=== PATIENT | male | born 1945 | race Caucasian/White ===

== ENCOUNTER 2019-01-11 12:04 | Emergency (ER) | payer MEDICARE, OTHER, SELFPAY ==
[2019-01-11 12:12] VITALS: BP 150/85; PULSE 70; RESP 16; TEMP 36.8; O2SAT 100; BMI 20.6
--- NOTE | 2019-01-11 12:28 | DI.RAD.S_ITS ---
PROCEDURE: XR CHEST 1V INDICATIONS: chest pain TECHNIQUE: One view of the chest was acquired. COMPARISON: [facility], CHEST 1 VIEW, 07/14/2016, 9:48. [facility], CHEST 1 VIEW, 01/18/2017, 19:33. FINDINGS: Surgical changes and devices: None. Lungs and pleura: The anterior costophrenic angles are clipped. No large pneumothorax or large pleural effusions are seen. No focal infiltrates are seen. Mediastinum: Mediastinal contours appear normal. Heart size is normal. Bones and chest wall: No suspicious bony lesions. Age-appropriate bony degenerative changes are seen. Overlying soft tissues appear unremarkable. IMPRESSION: Limited portable chest examination, without a significant cardiopulmonary abnormality identified. Dictated by: Hudson Yin M.D. on 01/11/2019 at 11:56 Approved by: Hudson Yin M.D. on 01/11/2019 at 11:58
[2019-01-11 12:38] LABS: Add Manual Diff / Slide Review NO; Basophils Absolute Auto 100 /uL (0-100); Basophils Percent Auto 0.9 % (0-2); Eosinophils Absolute Auto 100 /uL (0-450); Eosinophils Percent Auto 0.9 % (2-4); Hematocrit 45.8 % (41-53); Lymphocytes Absolute Auto 1600 /uL (1100-4500); Lymphocytes Percent Auto 24.7 % (25-40); Mean Corpuscular HGB Conc 34.9 % (30-36); Mean Corpuscular Hemoglobin 31.5 PG (26-34); Mean Corpuscular Volume 90.4 fL (80-100); Monocytes Absolute Auto 500 /uL (0-900); Monocytes Percent Auto 8.4 % (3-14); Neutrophils Absolute Auto 4200 /uL (1500-7000); Neutrophils Percent Auto 65.1 % (50-75); Platelet Count 173 X10^3/uL (150-400); Red Blood Cell Count 5.07 X10^6/uL (4.5-5.9); Red Cell Distribution Width 13.5 % (11.6-14.8); White Blood Cell Count 6.5 X10^3/uL (4.5-11.0)
[2019-01-11 12:47] LABS: Alanine Aminotransferase 23 IU/L (21-72); Albumin 4.6 g/dL (3.5-5.0); Albumin Globulin Ratio 1.5 (1.0-2.8); Alkaline Phosphatase 88 U/L (38-126); Aspartate Aminotransferase 25 IU/L (17-59); BUN Creatinine Ratio 18.9 (6-22); Bilirubin Total 0.6 mg/dL (0.2-1.3); Blood Urea Nitrogen 17 mg/dL (9-20); Calcium 9.2 mg/dL (8.4-10.2); Carbon Dioxide 27 mmol/L (22-32); Chloride 103 mmol/L (98-107); Creatine Kinase 41 U/L (55-170); Estimated Glomerular Filt Rate > 60.0 mL/min (>60); Glucose 98 mg/dL (80-110); HEMOLYSIS 21 (0-50); Lipase 150 U/L (23-300); Potassium 4.2 mmol/L (3.4-5.1); Sodium 140 mmol/L (137-145); Total Protein 7.6 g/dL (6.3-8.2)
[2019-01-11 12:59] LABS: Troponin I < 0.012 ng/mL (0.01-0.034)
[2019-01-11 13:06] VITALS: BP 114/68; PULSE 56; RESP 11; O2SAT 99
[2019-01-11] MEDS: ASPIRIN 81 MG TAB 324 MG PO (13:17)
--- NOTE | 2019-01-11 13:24 | ED_ITS ---
HPI - Chest Pain General Chief Complaint: Chest Pain Stated Complaint: chest pains, racing heart Time Seen by Provider: 01/11/19 12:17 Source: patient Mode of arrival: ambulatory Limitations: no limitations History of Present Illness HPI narrative: patient is a 73-year-old male who presents with left-sided chest pain ongoing for about a week. he does have a history of COPD.He has got a lot on his plate, He has a history of PTSD and is currently dealing with the son who is an addict. For about the last 1 week he has had some heart palpitations and chest discomfort. no productive cough no fever Related Data Home Medications Medication Instructions Recorded Confirmed citalopram 20 mg PO QPM #0 10/31/17 01/11/19 tamsulosin [Flomax] 0.4 mg PO QPM 01/11/19 01/11/19 Allergies Allergy/AdvReac Type Severity Reaction Status Date / Time No Known Drug Allergies Allergy Verified 01/11/19 12:12 Review of Systems Review of Systems ROS Unobtainable: All systems reviewed & are unremarkable except as noted in HPI and below Constitutional Denies chills, Denies fever(s), Denies lethargy and Denies weakness Eyes Denies change in vision, Denies eye discharge, Denies irritation and Denies loss of vision Cardiovascular Denies dyspnea and Denies dyspnea on exertion Respiratory Denies cough, Denies dyspnea, Denies dyspnea on exertion and Denies wheezing Neurologic Denies loss of vision and Denies weakness Allergic/Immunologic Denies wheezing PFSH Medical History Anxiety (Acute) COPD (chronic obstructive pulmonary disease) (Acute) PTSD (post-traumatic stress disorder) (Acute) Social History 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 RESPIRATORY: Breath sounds equal bilaterally, no wheezes rales or rhonchi. speaks in full sentences without difficulty ABDOMEN: Soft, nontender. Normoactive bowel sounds all 4 quadrants. No guarding or rebound. EXTREMITIES: Normal range of motion, no clubbing or edema. Neurovascularly intact NEUROLOGICAL: Alert and oriented x4.Normal gait and speech. Cranial nerves II through XII grossly intact. SKIN: Warm, dry, no laceration, no petechiae, no rashes or lesions. Scores HEART Score Heart Score history: Slightly Suspicious Heart Score EKG: Normal Heart Score Age: > or = 65 years old Heart Score risk factors: 1-2 risk factors Heart Score troponin: < or = to normal limit Heart Score Total: 3 Course Orders Ordered: ED Orders 01/11/19 12:09 EKG-12 Lead Stat 01/11/19 12:18 Complete Blood Count AUTO DIFF Stat Comprehensive Metabolic Panel Stat Lipase Stat Troponin & CK Cardiac Panel Stat 01/11/19 12:28 XR chest 1V Stat Discontinued Medications Aspirin (Aspirin Chew) 324 mg PO NOW ONE Stop: 01/11/19 12:29 Last Admin: 01/11/19 13:17 Dose: 324 mg Vital Signs - 8 hr 01/11/19 12:12 01/11/19 13:06 01/11/19 13:47 Temperature 98.2 F Pulse Rate 70 56 L 56 L Respiratory Rate 16 11 L 13 Blood Pressure 150/85 H Blood Pressure [Right Arm] 114/68 116/71 Pulse Oximetry 100 99 100 MDM - Chest Pain Lab Data Attestation: I reviewed the patient's lab results. Result diagrams: 01/11/19 12:18 01/11/19 12:18 Lab Results 01/11/19 01/11/19 Range/Units 12:18 12:18 WBC 6.5 (4.5-11.0) X10^3/uL RBC 5.07 (4.5-5.9) X10^6/uL Hgb 16.0 (13.5-17.5) g/dL Hct 45.8 (41-53) % MCV 90.4 (80-100) fL MCH 31.5 (26-34) PG MCHC 34.9 (30-36) % RDW 13.5 (11.6-14.8) % Plt Count 173 (150-400) X10^3/uL Neut % (Auto) 65.1 (50-75) % Lymph % (Auto) 24.7 L (25-40) % Trigg % (Auto) 8.4 (3-14) % Eos % (Auto) 0.9 L (2-4) % Baso % (Auto) 0.9 (0-2) % Neut # (Auto) 4200 (2616-7900) /uL Lymph # (Auto) 1600 (9100-3821) /uL Trigg # (Auto) 500 (0-900) /uL Eos # (Auto) 100 (0-450) /uL Baso # (Auto) 100 (0-100) /uL Sodium 140 (137-145) mmol/L Potassium 4.2 (3.4-5.1) mmol/L Chloride 103 (98-107) mmol/L Carbon Dioxide 27 (22-32) mmol/L BUN 17 (9-20) mg/dL Creatinine 0.90 (0.66-1.25) mg/dL Estimated GFR > 60.0 (>60) mL/min BUN/Creatinine Ratio 18.9 (6-22) Glucose 98 (80-110) mg/dL Calcium 9.2 (8.4-10.2) mg/dL Total Bilirubin 0.6 (0.2-1.3) mg/dL AST 25 (17-59) IU/L ALT 23 (21-72) IU/L Alkaline Phosphatase 88 (38-126) U/L Total Creatine Kinase 41 L (55-170) U/L CK-MB (CK-2) TNP CK-MB (CK-2) Rel Index TNP Troponin I < 0.012 (0.01-0.034) ng/mL Total Protein 7.6 (6.3-8.2) g/dL Albumin 4.6 (3.5-5.0) g/dL Globulin 3.0 (1.7-4.1) g/dL Albumin/Globulin Ratio 1.5 (1.0-2.8) Lipase 150 (23-300) U/L Imaging Data Chest x-ray: Radiologist's impression: PROCEDURE: XR CHEST 1V INDICATIONS: chest pain TECHNIQUE: One view of the chest was acquired. COMPARISON: [facility], CHEST 1 VIEW, 07/14/2016, 9:48. [facility], CHEST 1 VIEW, 01/18/2017, 19:33. FINDINGS: Surgical changes and devices: None. Lungs and pleura: The anterior costophrenic angles are clipped. No large pneumo thorax or large pleural effusions are seen. No focal infiltrates are seen. Mediastinum: Mediastinal contours appear normal. Heart size is normal. Bones and chest wall: No suspicious bony lesions. Age-appropriate bony degenerative changes are seen. Overlying soft tissues appear unremarkable. IMPRESSION: Limited portable chest examination, without a significant cardiopulmonary abnormality identified. Dictated by: Hudson Yin M.D. on 01/11/2019 at 11:56 MDM Narrative Medical decision making narrative: the patient states that is true reason for coming into the emergency department morning with his heart palpitations. He feels like some of it was anxiety. Cardiac workup is negative here. We discussed taking aspirin 81 mg daily to help with heart attack and stroke prevention. He understands and agrees also recommended outpatient stress test. Discharge Plan Departure Patient Disposition: Home Clinical Impression: Atypical chest pain Discharge Date/Time: 01/11/19 13:52 Interventions: ED Discharge Assessment Last Done: 01/11/19 13:52 Instructions: DI for Atypical Chest Pain Activity Restrictions/Additional Instructions: *You have been diagnosed with atypical chest *What to do: I still do recommend outpatient stress test chemically induced which your primary care provider can help you set. *Continue to take medications as directed Aspirin 81 mg once a day to help prevent stroke and heart attack *Follow up with your primary care provider in 2-3 days *Return to ER if you should have increasing chest pain heart medication shortness of breath or any new, worsening or concerning symptoms Prescriptions: No Action citalopram 20 MG tablet 20 mg PO QPM Qty: 0 RF: 0 tamsulosin [Flomax] 0.4 MG capsule 0.4 mg PO QPM RF: 0 Referrals: Calvin Hollins MD [Primary Care Provider] -
[2019-01-11 13:47] VITALS: BP 116/71; PULSE 56; RESP 13; O2SAT 100
== END 2019-01-11 13:52 | disposition home or self-care (01) ==
PROVIDERS: Emergency Provider Emergency Medicine; PCP Family Medicine
DX: R07.89 Other chest pain (principal)
CPT/HCPCS: 36591; 71045; 80053; 82550; 83690; 84484; 85025; 93005; 93010; 99283; 99285

== ENCOUNTER → 2019-01-15 09:53 | Outpatient (CLI) | payer MEDICARE, OTHER, SELFPAY ==
[2019-01-15 10:35] LABS: Add Manual Diff / Slide Review NO; Basophils Absolute Auto 0 /uL (0-100); Basophils Percent Auto 0.5 % (0-2); Eosinophils Absolute Auto 100 /uL (0-450); Eosinophils Percent Auto 1.2 % (2-4); Hematocrit 45.9 % (41-53); Hemoglobin 15.8 g/dL (13.5-17.5); Lymphocytes Absolute Auto 1400 /uL (1100-4500); Lymphocytes Percent Auto 22.1 % (25-40); Mean Corpuscular HGB Conc 34.4 % (30-36); Mean Corpuscular Hemoglobin 31.2 PG (26-34); Mean Corpuscular Volume 90.9 fL (80-100); Monocytes Absolute Auto 400 /uL (0-900); Monocytes Percent Auto 6.4 % (3-14); Neutrophils Absolute Auto 4400 /uL (1500-7000); Neutrophils Percent Auto 69.8 % (50-75); Platelet Count 174 X10^3/uL (150-400); Red Blood Cell Count 5.05 X10^6/uL (4.5-5.9); Red Cell Distribution Width 13.3 % (11.6-14.8); White Blood Cell Count 6.3 X10^3/uL (4.5-11.0)
[2019-01-15 10:47] LABS: Alanine Aminotransferase 21 IU/L (21-72); Albumin 4.4 g/dL (3.5-5.0); Albumin Globulin Ratio 1.5 (1.0-2.8); Alkaline Phosphatase 81 U/L (38-126); Aspartate Aminotransferase 20 IU/L (17-59); Bilirubin Total 0.4 mg/dL (0.2-1.3); Blood Urea Nitrogen 22 mg/dL (9-20); Calcium 9.2 mg/dL (8.4-10.2); Carbon Dioxide 28 mmol/L (22-32); Chloride 102 mmol/L (98-107); Cholesterol 281 mg/dL (140-199); Estimated Glomerular Filt Rate > 60.0 mL/min (>60); Glucose 116 mg/dL (80-110); HDL Cholesterol 43 mg/dL (40-60); HEMOLYSIS < 15 (0-50); LDL Cholesterol Calculated 212 mg/dL (<100); Potassium 4.5 mmol/L (3.4-5.1); Sodium 138 mmol/L (137-145); Total Protein 7.4 g/dL (6.3-8.2); Triglycerides 128 mg/dL (35-150)
[2019-01-15 11:13] LABS: TSH w/ Reflex to FT4 2.13 uIU/mL (0.47-4.68)
[2019-01-15 19:35] LABS: Occult Blood 1 Negative (Negative); Occult Blood 2 Negative (Negative)
[2019-01-15 19:36] LABS: Occult Blood 3 Negative (Negative)
== END ==
PROVIDERS: PCP Family Medicine; Visit Provider Family Medicine
DX: E78.00 Pure hypercholesterolemia, unspecified (principal)
CPT/HCPCS: 36415; 80053; 80061; 82270; 84443; 85025

== ENCOUNTER → 2019-05-07 08:24 | Outpatient (CLI) | payer MEDICARE, OTHER, SELFPAY ==
[2019-05-07 09:50] LABS: Add Manual Diff / Slide Review NO; Basophils Absolute Auto 0 /uL (0-100); Basophils Percent Auto 0.7 % (0-2); Eosinophils Absolute Auto 100 /uL (0-450); Eosinophils Percent Auto 2.3 % (2-4); Hemoglobin 15.3 g/dL (13.5-17.5); Lymphocytes Absolute Auto 1400 /uL (1100-4500); Lymphocytes Percent Auto 22.8 % (25-40); Mean Corpuscular HGB Conc 34.8 % (30-36); Mean Corpuscular Hemoglobin 31.6 PG (26-34); Mean Corpuscular Volume 90.8 fL (80-100); Monocytes Absolute Auto 400 /uL (0-900); Monocytes Percent Auto 7.4 % (3-14); Neutrophils Absolute Auto 4000 /uL (1500-7000); Neutrophils Percent Auto 66.8 % (50-75); Platelet Count 158 X10^3/uL (150-400); Red Blood Cell Count 4.85 X10^6/uL (4.5-5.9); Red Cell Distribution Width 13.4 % (11.6-14.8); White Blood Cell Count 5.9 X10^3/uL (4.5-11.0)
[2019-05-07 09:57] LABS: Alanine Aminotransferase 21 IU/L (21-72); Albumin 3.9 g/dL (3.5-5.0); Albumin Globulin Ratio 1.5 (1.0-2.8); Alkaline Phosphatase 85 U/L (38-126); Aspartate Aminotransferase 19 IU/L (17-59); BUN Creatinine Ratio 21.1 (6-22); Bilirubin Total 0.5 mg/dL (0.2-1.3); Blood Urea Nitrogen 19 mg/dL (9-20); Calcium 8.9 mg/dL (8.4-10.2); Carbon Dioxide 31 mmol/L (22-32); Chloride 103 mmol/L (98-107); Cholesterol 271 mg/dL (140-199); Estimated Glomerular Filt Rate > 60.0 mL/min (>60); Globulin 2.6 g/dL (1.7-4.1); Glucose 92 mg/dL (80-110); HDL Cholesterol 46 mg/dL (40-60); HEMOLYSIS < 15 (0-50); LDL Cholesterol Calculated 201 mg/dL (<100); Potassium 4.5 mmol/L (3.4-5.1); Sodium 139 mmol/L (137-145); Total Protein 6.5 g/dL (6.3-8.2); Triglycerides 121 mg/dL (35-150)
== END ==
PROVIDERS: PCP Hospitalist; Visit Provider Hospitalist
DX: J44.9 Chronic obstructive pulmonary disease, unspecified (principal)
CPT/HCPCS: 36415; 80053; 80061; 85025

== ENCOUNTER → 2019-10-08 10:44 | Outpatient (CLI) | payer MEDICARE, OTHER, SELFPAY | PROVIDERS: PCP Hospitalist; Visit Provider Hospitalist | DX: M54.5 Low back pain (principal) ==

== ENCOUNTER → 2019-10-08 10:51 | Outpatient (CLI) | payer MEDICARE, OTHER, SELFPAY ==
--- NOTE | 2019-10-08 | DI.RAD.S_ITS ---
PROCEDURE: XR LUMBAR SPINE 2-3V INDICATIONS: low back pain TECHNIQUE: 3 views of the lumbar spine were acquired. COMPARISON: [facility], CR, ABDOMEN 2 VIEW, 06/13/2017, 7:21. [facility], CT, CT KUB, 10/31/2017, 7:23. FINDINGS: Bones: 5 [id number] vertebrae are present. There is moderately abnormal bony alignment with convex rightward scoliosis centered at L2, slightly more prominent than on the comparison plain films of the abdomen 06/13/17. No vertebral body compression fractures. No suspicious bony lesions. Soft tissues: Overlying bowel gas pattern is normal. No suspicious soft tissue calcifications. IMPRESSION: Convex rightward scoliosis measures 14.5?, mildly worsened from 2017. No acute disease, however. Dictated by: Davey Ortega M.D. on 10/08/2019 at 11:20 Approved by: Davey Ortega M.D. on 10/08/2019 at 11:22
== END ==
PROVIDERS: PCP Hospitalist; Visit Provider Hospitalist
DX: M54.5 Low back pain (principal); M41.86 Other forms of scoliosis, lumbar region
CPT/HCPCS: 72100

== ENCOUNTER → 2019-10-23 08:27 | Outpatient (CLI) | payer MEDICARE, OTHER, SELFPAY ==
[2019-10-23 09:29] LABS: Add Manual Diff / Slide Review NO; Basophils Absolute Auto 0 /uL (0-100); Basophils Percent Auto 0.5 % (0-2); Eosinophils Absolute Auto 100 /uL (0-450); Eosinophils Percent Auto 1.4 % (2-4); Hematocrit 43.9 % (41-53); Hemoglobin 15.6 g/dL (13.5-17.5); Lymphocytes Absolute Auto 1400 /uL (1100-4500); Lymphocytes Percent Auto 20.7 % (25-40); Mean Corpuscular HGB Conc 35.5 % (30-36); Mean Corpuscular Hemoglobin 31.9 PG (26-34); Mean Corpuscular Volume 89.8 fL (80-100); Monocytes Absolute Auto 500 /uL (0-900); Monocytes Percent Auto 7.2 % (3-14); Neutrophils Absolute Auto 4800 /uL (1500-7000); Neutrophils Percent Auto 70.2 % (50-75); Platelet Count 156 X10^3/uL (150-400); Red Blood Cell Count 4.89 X10^6/uL (4.5-5.9); Red Cell Distribution Width 13.6 % (11.6-14.8); White Blood Cell Count 6.8 X10^3/uL (4.5-11.0)
[2019-10-23 10:06] LABS: Cholesterol 272 mg/dL (140-199); HDL Cholesterol 45 mg/dL (40-60); LDL Cholesterol Calculated 199 mg/dL (<100); Triglycerides 138 mg/dL (35-150)
[2019-10-23 10:20] LABS: Vitamin D 25 Hydroxy (D3) 31.1 ng/mL (30.0-100.0)
[2019-10-23 10:36] LABS: Prostate Specific Antigen 4.95 ng/mL (0.10-4.00)
== END ==
PROVIDERS: PCP Family Medicine; Visit Provider Family Medicine
DX: E55.9 Vitamin D deficiency, unspecified (principal); E78.5 Hyperlipidemia, unspecified; R39.9 Unspecified symptoms and signs involving the genitourinary system
CPT/HCPCS: 36415; 80061; 82306; 84153; 85025

== ENCOUNTER 2019-11-12 07:41 | Outpatient (RCR) | payer MEDICARE, OTHER, SELFPAY ==
--- NOTE | 2019-11-12 16:12 | PT.OIE ---
Current Diagnoses Low back pain (11/12/19) Past Medical History (Last Updated 10/16/19 @ 16:27 by Antonio Chandra DO) Anxiety (Chronic) Chicken pox (Resolved) Chronic back pain (Chronic ~1972) COPD (chronic obstructive pulmonary disease) (Chronic ~1999) Gastric ulcer (Chronic ~1979) Hearing loss (Chronic ~1971) Herpes (Resolved ~1969) History of elevated PSA (Chronic ~2009) Hyperlipidemia (Acute) PTSD (post-traumatic stress disorder) (Chronic ~1967) Tinnitus (Chronic ~1971) Tobacco abuse (Acute) Past Surgical History (Last Reviewed 09/06/19 @ 12:15 by Layla Martinez MD) Anesthesia (Resolved) Hernia (Resolved) History of appendectomy (Resolved ~2007) Visit Care Team Role Provider Type Antonio Chandra DO Attending Provider Physician Primary Care Provider Specialty: [facility] Address: [address] [place] [address] Email: Physical Therapy Initial Evaluation PT-OP-A Visit Information Start: 11/12/19 08:06 Freq: Status: Active Protocol: Document 11/12/19 08:15 AMB (Rec: 11/12/19 16:29 AMB [email or web address]) Out-Patient Physical Therapy Visit Information Visit Information Visit Type Initial Evaluation Visit Start Time 08:15 Visit Stop Time 09:00 Total Visit Minutes 45 Visit Number 1 PT-OP-B Current Condition Start: 11/12/19 08:06 Freq: Status: Active Protocol: Document 11/12/19 08:15 AMB (Rec: 11/12/19 16:29 AMB [email or web address]) Current Condition History of Current Condition Onset Date 40 years ago (chronic) 1 month ago (acute exacerbation) Current Complaints low back pain History of Current Condition Oscar reports he was on the top of a 2 story building 40 years ago when it collapsed. He states he landed on the low back/buttocks more on the right side and had X-rays at the time that did not show any fractures. He had pain for days, but then went back to work but has had chronic low back pain since. He notes that a month ago, he was jerking a garbage can that was frozen to the ground and felt his back go out. The pain was pretty bad for about 2 weeks, but is better now. A few days ago, he felt like he was lifting something and is worried that his hernia surgery split. He has had two hernia surgeries on the right . He has lost about 30 pounds from before and after his most recent hernia surgery because it was uncomfortable to digest food. He is also recently went on a [place] diet due to high cholesterol. He is concerned that he has lost muscle mass due to his fairly significant weight loss. He currently finds walking more than a mile or two difficult due to the pain, and has increased pain immediately upon trying to walk up hill. He dislikes bending forward to wash dishes , or to push the lawnmower. Prior Functional Status Baseline Function- ADL's Independent Baseline Function- Mobility Independent Current Functional Impairments (Reported) Functional Limitations- ADL's Pain with lumbar flexion activities including dishwashing, walking uphill, mowing the lawn Functional Limitations- Mobility/Gait Antalgic gait even for short distances Personal Factors Other Personal Factors That May Effect Current smoker, hx hernia Therapy/Recovery surgery x 2 PT-OP-C Subjective Start: 11/12/19 08:06 Freq: Status: Active Protocol: Document 11/12/19 08:15 AMB (Rec: 11/12/19 16:29 AMB [email or web address]) Patient Questionnaires Oswestry Low Back Index Oswestry Score 42 Oswestry Impairment 40 to 59% Impaired (Score 40- 59) OP-PT Pain Assessment Location Back Pain Location Details Low back pain Intensity 3 Scale Used Numeric (1 - 10) PT-OP-J Posture/Palpation/Skin Start: 11/12/19 08:06 Freq: Status: Active Protocol: Document 11/12/19 08:15 AMB (Rec: 11/13/19 12:55 AMB [email or web address]) Posture Evaluation Comments Posture Comments R medial scapula more prominent, mild curvature convex to the right in the thoracic spine Palpation Assessment Location One Palpation Location low back Palpation Details no tenderness with palpation over sacrum, tenderness with palpation and stiffness with central PAs at L3-5. Very flexible through hamstrings and hip flexors. PT-OP-K Range of Motion Start: 11/12/19 08:06 Freq: Status: Active Protocol: Document 11/12/19 08:15 AMB (Rec: 11/13/19 12:55 AMB [email or web address]) Lumbar Spine Range of Motion Lumbar Spine Active Degrees Testing Position Standing Flexion 40 Extension 25 Lateral Flexion Left 25 Lateral Flexion Right 25 Comments pain with flexion and sidebending PT-OP-M Strength Start: 11/12/19 08:06 Freq: Status: Active Protocol: Document 11/12/19 08:15 AMB (Rec: 11/13/19 12:55 AMB [email or web address]) Hip Strength Hip Manual Muscle Testing Right Flexion (L2) 4+ Good+ Extension (S1) 4+ Good+ Abduction 5 Normal Adduction 5 Normal Comments palpating R side where pt describes hernia throughout testing, no bulging out felt Left Flexion (L2) 4+ Good+ Extension (S1) 4+ Good+ Abduction 5 Normal Adduction 5 Normal Knee Strength Knee Manual Muscle Testing Right Flexion (S2) 5 Normal Extension (L3) 5 Normal Left Flexion (S2) 5 Normal Extension (L3) 5 Normal Ankle/Foot Strength Ankle and Foot Manual Muscle Testing Right Dorsiflexion (L4) 5 Normal Plantarflexion (S1) 5 Normal Left Dorsiflexion (L4) 5 Normal Plantarflexion (S1) 5 Normal PT-OP-Q Treatments Start: 11/12/19 08:06 Freq: Status: Active Protocol: Document 11/12/19 08:15 AMB (Rec: 11/13/19 12:55 AMB [email or web address]) Therapeutic Exercises Other Exercises 1 Other Exercise Name quadruped UE flexion Comments working into bird dog, vc TA PT-OP-T Assessment and Plan Start: 11/12/19 08:06 Freq: Status: Active Protocol: Document 11/12/19 08:15 AMB (Rec: 11/13/19 13:04 AMB [email or web address]) Physical Therapy Assessment Rehab Potential Rehabilitation Potential Good Evaluation Complexity Number of Body Systems Impaired 1-2 Clinical Presentation at Evaluation Evolving Impairments Impairments Functional Activities,Gait, Pain,Posture,ROM,Strength Goals Two Impairment ADLs Short Term Goal (STG) Oscar will wash his dishes without an increase in baseline pain. STG Duration 4 weeks Fdc Goal (LTG) Oscar will lift 20# from the floor to waist height with good body mechanics without an increase in pain. LTG Duration 8 weeks One Impairment gait Short Term Goal (STG) Pt will ambulate without antalgic gait for 10 minutes. STG Duration 4 weeks Assessment Summary Assessment Oscar attends physical therapy with an acute exacerbation of chronic back pain. The exacerbation is better than it was 2 weeks ago, but he is hopeful to work on an exercise program that he can do at home, as he has not been exercising since his pain flare up. However, he is concerned about his recent increase in pain around his hernia that was repaired. He is planning on following up with his physician regarding his hernia before continuing with physical therapy, and was encouraged to do this sooner rather than later so he does not need a new referral to PT. He was able to tolerate all testing in PT today without a flare up in his pain around his hernia, but he would like to get it checked out. When he returns to physical therapy he would benefit from a core stabilization program. Physical Therapy Plan Frequency and Duration Frequency of Treatment 2x/Week Duration of Treatment 8 weeks Plan of Care Start Date 11/12/19 Plan of Care End Date 01/07/20 Therapeutic Interventions Therapeutic Interventions Aquatic Therapy,Gait Training, Home Exercise Program,Joint Mobilizations,Manual Therapy, Neuromuscular Re-education, Self-Care/Home Management, Therapeutic Activities, Therapeutic Exercises Modalities Cold Pack/Ice Massage,Electric Stimulation,Hot Packs Next Visit Focus/Plan Next Note Type Treatment Note Next Visit Plan Progress core stabilization HEP
--- NOTE | 2019-11-12 16:13 | PT.OPPOC ---
[facility] Occupational [facility] Current Diagnoses Low back pain (11/12/19) Visit Care Team Role Provider Type Antonio Chandra DO Attending Provider Physician Primary Care Provider Specialty: Family [facility] Address: [address] [place] [address], [id number] Email: Plan Of Care PT-OP-T Assessment and Plan Start: 11/12/19 08:06 Freq: Status: Active Protocol: Document 11/12/19 08:15 AMB (Rec: 11/13/19 13:04 AMB [email or web address]) Physical Therapy Assessment Rehab Potential Rehabilitation Potential Good Evaluation Complexity Number of Body Systems Impaired 1-2 Clinical Presentation at Evaluation Evolving Impairments Impairments Functional Activities,Gait, Pain,Posture,ROM,Strength Goals Two Impairment ADLs Short Term Goal (STG) Oscar will wash his dishes without an increase in baseline pain. STG Duration 4 weeks Law Secretary Goal (LTG) Oscar will lift 20# from the floor to waist height with good body mechanics without an increase in pain. LTG Duration 8 weeks One Impairment gait Short Term Goal (STG) Pt will ambulate without antalgic gait for 10 minutes. STG Duration 4 weeks Assessment Summary Assessment Oscar attends physical therapy with an acute exacerbation of chronic back pain. The exacerbation is better than it was 2 weeks ago, but he is hopeful to work on an exercise program that he can do at home, as he has not been exercising since his pain flare up. However, he is concerned about his recent increase in pain around his hernia that was repaired. He is planning on following up with his physician regarding his hernia before continuing with physical therapy, and was encouraged to do this sooner rather than later so he does not need a new referral to PT. He was able to tolerate all testing in PT today without a flare up in his pain around his hernia, but he would like to get it checked out. When he returns to physical therapy he would benefit from a core stabilization program. Physical Therapy Plan Frequency and Duration Frequency of Treatment 2x/Week Duration of Treatment 8 weeks Plan of Care Start Date 11/12/19 Plan of Care End Date 01/07/20 Therapeutic Interventions Therapeutic Interventions Aquatic Therapy,Gait Training, Home Exercise Program,Joint Mobilizations,Manual Therapy, Neuromuscular Re-education, Self-Care/Home Management, Therapeutic Activities, Therapeutic Exercises Modalities Cold Pack/Ice Massage,Electric Stimulation,Hot Packs Next Visit Focus/Plan Next Note Type Treatment Note Next Visit Plan Progress core stabilization HEP Plan of Care Dates Plan of Care Start Date 11/12/19 Plan of Care End Date 01/07/20 Electronically Signed by: Bonnie Tadeo, PT 11/13/19 [id number] Please Sign and Return: I have reviewed this Plan of Care and certify that the skilled therapy services above are required to meet the patient?s needs. Physician Signature Date Printed Name and Credentials Clinical Instructor Signature Printed Name and Credentials
--- NOTE | 2020-01-17 08:46 | PT.OPDS ---
Current Diagnoses Low back pain (11/12/19) Visit Care Team Role Provider Type Antonio Chandra DO Attending Provider Physician Primary Care Provider Specialty: Family Practice Address: [address] [place] [address], [facility] Email: Visit Number Visit Number 1 Discharge Summary PT-OP-B Current Condition Start: 11/12/19 08:06 Freq: Status: Active Protocol: Document 11/12/19 08:15 AMB (Rec: 11/12/19 16:29 AMB [email or web address]) Current Condition History of Current Condition Onset Date 40 years ago (chronic) 1 month ago (acute exacerbation) Current Complaints low back pain History of Current Condition Oscar reports he was on the top of a 2 story building 40 years ago when it collapsed. He states he landed on the low back/buttocks more on the right side and had X-rays at the time that did not show any fractures. He had pain for days, but then went back to work but has had chronic low back pain since. He notes that a month ago, he was jerking a garbage can that was frozen to the ground and felt his back go out. The pain was pretty bad for about 2 weeks, but is better now. A few days ago, he felt like he was lifting something and is worried that his hernia surgery split. He has had two hernia surgeries on the right . He has lost about 30 pounds from before and after his most recent hernia surgery because it was uncomfortable to digest food. He is also recently went on a [place] diet due to high cholesterol. He is concerned that he has lost muscle mass due to his fairly significant weight loss. He currently finds walking more than a mile or two difficult due to the pain, and has increased pain immediately upon trying to walk up hill. He dislikes bending forward to wash dishes , or to push the lawnmower. Prior Functional Status Baseline Function- ADL's Independent Baseline Function- Mobility Independent Current Functional Impairments (Reported) Functional Limitations- ADL's Pain with lumbar flexion activities including dishwashing, walking uphill, mowing the lawn Functional Limitations- Mobility/Gait Antalgic gait even for short distances Personal Factors Other Personal Factors That May Effect Current smoker, hx hernia Therapy/Recovery surgery x 2 PT-OP-C Subjective Start: 11/12/19 08:06 Freq: Status: Active Protocol: Document 11/12/19 08:15 AMB (Rec: 11/12/19 16:29 AMB [email or web address]) Patient Questionnaires Oswestry Low Back Index Oswestry Score 42 Oswestry Impairment 40 to 59% Impaired (Score 40- 59) OP-PT Pain Assessment Location Back Pain Location Details Low back pain Intensity 3 Scale Used Numeric (1 - 10) PT-OP-J Posture/Palpation/Skin Start: 11/12/19 08:06 Freq: Status: Active Protocol: Document 11/12/19 08:15 AMB (Rec: 11/13/19 12:55 AMB [email or web address]) Posture Evaluation Comments Posture Comments R medial scapula more prominent, mild curvature convex to the right in the thoracic spine Palpation Assessment Location One Palpation Location low back Palpation Details no tenderness with palpation over sacrum, tenderness with palpation and stiffness with central PAs at L3-5. Very flexible through hamstrings and hip flexors. PT-OP-K Range of Motion Start: 11/12/19 08:06 Freq: Status: Active Protocol: Document 11/12/19 08:15 AMB (Rec: 11/13/19 12:55 AMB [email or web address]) Lumbar Spine Range of Motion Lumbar Spine Active Degrees Testing Position Standing Flexion 40 Extension 25 Lateral Flexion Left 25 Lateral Flexion Right 25 Comments pain with flexion and sidebending PT-OP-M Strength Start: 11/12/19 08:06 Freq: Status: Active Protocol: Document 11/12/19 08:15 AMB (Rec: 11/13/19 12:55 AMB [email or web address]) Hip Strength Hip Manual Muscle Testing Right Flexion (L2) 4+ Good+ Extension (S1) 4+ Good+ Abduction 5 Normal Adduction 5 Normal Comments palpating R side where pt describes hernia throughout testing, no bulging out felt Left Flexion (L2) 4+ Good+ Extension (S1) 4+ Good+ Abduction 5 Normal Adduction 5 Normal Knee Strength Knee Manual Muscle Testing Right Flexion (S2) 5 Normal Extension (L3) 5 Normal Left Flexion (S2) 5 Normal Extension (L3) 5 Normal Ankle/Foot Strength Ankle and Foot Manual Muscle Testing Right Dorsiflexion (L4) 5 Normal Plantarflexion (S1) 5 Normal Left Dorsiflexion (L4) 5 Normal Plantarflexion (S1) 5 Normal PT-OP-T Assessment and Plan Start: 11/12/19 08:06 Freq: Status: Active Protocol: Document 01/17/20 08:45 AMB (Rec: 01/17/20 08:46 AMB [id number]) Physical Therapy Assessment Assessment Summary Assessment Oscar was not seen after his eval due to being concerned about his hernia. Please see initial evaluation for data. He has not been seen in over 2 months, therefore discharged at this time.
== END 2020-01-18 08:22 ==
LOC: PHYS 07:41
PROVIDERS: PCP Family Medicine; Visit Provider Family Medicine
DX: M54.5 Low back pain (principal)
CPT/HCPCS: 97110; 97161

== ENCOUNTER 2020-12-20 06:47 | Emergency (ER) | payer MEDICARE, SELFPAY ==
[2020-12-20 06:57] VITALS: BP 191/86; PULSE 77; RESP 18; TEMP 36.7; O2SAT 99; BMI 21.2
[2020-12-20 07:29] LABS: Add Manual Diff / Slide Review NO; Basophils Absolute Auto 100 /uL (0-100); Basophils Percent Auto 0.8 % (0-2); Eosinophils Absolute Auto 100 /uL (0-450); Eosinophils Percent Auto 1.2 % (2-4); Hematocrit 47.9 % (41-53); Hemoglobin 16.5 g/dL (13.5-17.5); Lymphocytes Absolute Auto 1400 /uL (1100-4500); Lymphocytes Percent Auto 22.5 % (25-40); Mean Corpuscular HGB Conc 34.3 % (30-36); Mean Corpuscular Hemoglobin 30.4 PG (26-34); Mean Corpuscular Volume 88.7 fL (80-100); Monocytes Absolute Auto 400 /uL (0-900); Monocytes Percent Auto 6.8 % (3-14); Neutrophils Absolute Auto 4200 /uL (1500-7000); Neutrophils Percent Auto 68.7 % (50-75); Platelet Count 161 X10^3/uL (150-400); White Blood Cell Count 6.1 X10^3/uL (4.5-11.0)
[2020-12-20 07:35] LABS: Prothrombin Time 11.8 SECONDS (10.1-12.7)
[2020-12-20 07:38] LABS: PTT Partial Thromboplastin Tim 36 SECONDS (26.4-36.2)
[2020-12-20 07:39] LABS: Alanine Aminotransferase 17 IU/L (<50); Albumin 4.3 g/dL (3.5-5.0); Albumin Globulin Ratio 1.4 (1.0-2.8); Alkaline Phosphatase 103 U/L (38-126); Aspartate Aminotransferase 23 IU/L (17-59); BUN Creatinine Ratio 17.8 (6-22); Bilirubin Total 0.6 mg/dL (0.2-1.3); Blood Urea Nitrogen 16 mg/dL (9-20); Calcium 8.8 mg/dL (8.4-10.2); Carbon Dioxide 32 mmol/L (22-32); Chloride 102 mmol/L (98-107); Estimated Glomerular Filt Rate > 60.0 mL/min (>60); Globulin 3.1 g/dL (1.7-4.1); Glucose 106 mg/dL (80-110); HEMOLYSIS < 15 (0-50); Lipase 161 U/L (23-300); Sodium 138 mmol/L (137-145); Total Protein 7.4 g/dL (6.3-8.2)
--- NOTE | 2020-12-20 07:43 | ED_ITS ---
HPI - GI Bleed General Chief complaint: GI Bleed Stated complaint: poss ulser Time Seen by Provider: 12/20/20 07:21 Source: patient Mode of arrival: Ambulatory Limitations: no limitations History of Present Illness HPI Narrative: Patient is a 75-year-old male who has 2 prior episodes of upper GI bleeds. The 1st 1 is approximately 30 years ago and the 2nd 1 was approximately 20 years ago. He is not currently on any reflux medications/PPI peer he does not drink alcohol. Does not use anti-inflammatories. Does not take aspirin. Is not on anticoagulation. He states that earlier this week he started noticing some black colored stools but then over the past 2 days noticed black diarrhea. He is not having any fevers. No nausea or vomiting. No abdominal pain. No bright red blood per rectum. No problems with urinating. Related Data Previous Rx's Medication Instructions Recorded tamsulosin 0.4 mg capsule 0.4 mg PO QPM #90 cap 09/03/20 esomeprazole magnesium 20 mg PO DAILY #30 cap 12/20/20 Allergies Allergy/AdvReac Type Severity Reaction Status Date / Time No Known Drug Allergies Allergy Verified 12/17/19 10:11 Review of Systems Constitutional Constitutional: Denies fever(s) and Denies headache(s) ENT Ears, Nose, Mouth, and Throat: Denies headache(s) Cardiovascular Cardiovascular: Denies chest pain and Denies dyspnea Respiratory Respiratory: Denies dyspnea Gastrointestinal Gastrointestinal: Denies abdominal pain, Reports melena, Denies hematochezia, Denies nausea and Denies vomiting Genitourinary Genitourinary: Denies dysuria Genitourinary: Denies dysuria Musculoskeletal Musculoskeletal: Denies arthralgias and Denies myalgias Integumentary/Breasts Skin/Breast: Denies lesions and Denies rash Neurologic Neurologic: Denies behavioral changes and Denies headache(s) Psychiatric Psychiatric: Denies behavioral changes Hematologic/Lymphatic On Anticoagulants: No Allergic/Immunologic Allergic/Immunologic: Denies urticaria Patient History Medical History Anxiety Chicken pox Chronic back pain (~1972) COPD (chronic obstructive pulmonary disease) (~1999) Gastric ulcer (~1979) Hearing loss (~1971) Herpes (~1969) History of elevated PSA (~2009) Hyperlipidemia PTSD (post-traumatic stress disorder) (~1967) Tinnitus (~1971) Tobacco abuse Surgical History Anesthesia Hernia History of appendectomy (~2007) Family History Father Pneumonia Mother Pneumonia Social History 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 Smoking Status: Current every day smoker quit status: considering quitting alcohol intake: former substance use type: marijuana Smoking Status: Current every day smoker tobacco type: cigarettes Substance Use Type: does not use Exam Initial Vital Signs Initial Vital Signs: Vital Signs Temperature 98.1 F 12/20/20 06:57 Pulse Rate 77 12/20/20 06:57 Respiratory Rate 18 12/20/20 06:57 Blood Pressure 191/86 H 12/20/20 06:57 Pulse Oximetry 99 12/20/20 06:57 Const General: cooperative and comfortable Limitations: mental status not altered HENMT Head: normal to inspection and normocephalic Resp Effort & Inspection: normal respiratory effort Auscultation: clear to auscultation bilaterally Cardio Rate: regular rate Rhythm: regular rhythm GI Inspection: non-distended Palpation: soft, No firm and No tender Rectal Exam: heme negative stool (However no stool noted in rectal vault or on glove) Skin Lesions: no lesions Rashes: no rashes Neuro General: patient alert and patient awake Cognition: normal cognition Speech: speech normal Extrem General: capillary refill normal Psych Appearance: grossly normal and well kempt Course Orders Ordered: ED Orders 12/20/20 07:21 Complete Blood Count AUTO DIFF Stat Comprehensive Metabolic Panel Stat 12/20/20 07:22 Lipase Stat Partial Thromboplastin Time Stat Prothrombin Time INR Stat Vital Signs Vital signs: Vital Signs - 8 hr 12/20/20 06:57 Temperature 98.1 F Pulse Rate 77 Respiratory Rate 18 Blood Pressure 191/86 H Pulse Oximetry 99 MDM - GI Bleed Lab Data Attestation: I reviewed the patient's lab results. Result diagrams: 12/20/20 07:12 12/20/20 07:12 Labs: Lab Results 12/20/20 12/20/20 12/20/20 Range/Units 07:12 07:12 07:12 WBC 6.1 (4.5-11.0) X10^3/uL RBC 5.40 (4.5-5.9) X10^6/uL Hgb 16.5 (13.5-17.5) g/dL Hct 47.9 (41-53) % MCV 88.7 (80-100) fL MCH 30.4 (26-34) PG MCHC 34.3 (30-36) % RDW 14.0 (11.6-14.8) % Plt Count 161 (150-400) X10^3/uL Neut % (Auto) 68.7 (50-75) % Lymph % (Auto) 22.5 L (25-40) % Roane % (Auto) 6.8 (3-14) % Eos % (Auto) 1.2 L (2-4) % Baso % (Auto) 0.8 (0-2) % Neut # (Auto) 4200 (9876-8116) /uL Lymph # (Auto) 1400 (0174-0476) /uL Roane # (Auto) 400 (0-900) /uL Eos # (Auto) 100 (0-450) /uL Baso # (Auto) 100 (0-100) /uL PT 11.8 (10.1-12.7) SECONDS INR 1.0 (0.9-1.3) APTT 36 (26.4-36.2) SECONDS Sodium 138 (137-145) mmol/L Potassium 4.0 (3.4-5.1) mmol/L Chloride 102 (98-107) mmol/L Carbon Dioxide 32 (22-32) mmol/L BUN 16 (9-20) mg/dL Creatinine 0.90 (0.66-1.25) mg/dL Estimated GFR > 60.0 (>60) mL/min BUN/Creatinine Ratio 17.8 (6-22) Glucose 106 (80-110) mg/dL Calcium 8.8 (8.4-10.2) mg/dL Total Bilirubin 0.6 (0.2-1.3) mg/dL AST 23 (17-59) IU/L ALT 17 (<50) IU/L Alkaline Phosphatase 103 (38-126) U/L Total Protein 7.4 (6.3-8.2) g/dL Albumin 4.3 (3.5-5.0) g/dL Globulin 3.1 (1.7-4.1) g/dL Albumin/Globulin Ratio 1.4 (1.0-2.8) Lipase (23-300) U/L 12/20/20 Range/Units 07:12 WBC (4.5-11.0) X10^3/uL RBC (4.5-5.9) X10^6/uL Hgb (13.5-17.5) g/dL Hct (41-53) % MCV (80-100) fL MCH (26-34) PG MCHC (30-36) % RDW (11.6-14.8) % Plt Count (150-400) X10^3/uL Neut % (Auto) (50-75) % Lymph % (Auto) (25-40) % Roane % (Auto) (3-14) % Eos % (Auto) (2-4) % Baso % (Auto) (0-2) % Neut # (Auto) (1372-6243) /uL Lymph # (Auto) (5239-8803) /uL Roane # (Auto) (0-900) /uL Eos # (Auto) (0-450) /uL Baso # (Auto) (0-100) /uL PT (10.1-12.7) SECONDS INR (0.9-1.3) APTT (26.4-36.2) SECONDS Sodium (137-145) mmol/L Potassium (3.4-5.1) mmol/L Chloride (98-107) mmol/L Carbon Dioxide (22-32) mmol/L BUN (9-20) mg/dL Creatinine (0.66-1.25) mg/dL Estimated GFR (>60) mL/min BUN/Creatinine Ratio (6-22) Glucose (80-110) mg/dL Calcium (8.4-10.2) mg/dL Total Bilirubin (0.2-1.3) mg/dL AST (17-59) IU/L ALT (<50) IU/L Alkaline Phosphatase (38-126) U/L Total Protein (6.3-8.2) g/dL Albumin (3.5-5.0) g/dL Globulin (1.7-4.1) g/dL Albumin/Globulin Ratio (1.0-2.8) Lipase 161 (23-300) U/L MDM Narrative Medical decision making narrative: Patient is nontoxic. Has a benign exam. He is Hemoccult negative however this is in the setting where there was no stool noticed in the rectal vault or on the glove with the exam. He has no abdominal tenderness. Is not tachycardic. Does not hypotensive. He was actually hypertensive in triage however this improved during his stay without intervention. He is not currently on any PPI. He denies any alcohol or nonsteroidal anti-inflammatories or aspirin or anticoagulation. Will start him on a PPI. He was given contact information for General surgery group here in [facility] to call to schedule a upper endoscopy. He was given return precautions and follow-up instructions. He expressed understanding and agreement. Discharge Plan Departure Patient Disposition: Home Clinical Impression: Melena Instructions: Gastrointestinal Bleeding Activity Restrictions/Additional Instructions: I recommend that you start taking the medication that you were prescribed as directed. This medication works best if you take it on an empty stomach. It is also medication that needs to be taken every day for to be effective. I recommend that you contact your primary provider for follow-up. He can also contact the [place] [facility] at [phone] to discuss the indications for upper endoscopy. Return to the emergency department for any new or worsening symptoms Prescriptions: New esomeprazole magnesium 20 mg capsule,delayed release(DR/EC) 20 mg PO DAILY Qty: 30 RF: 2 No Action tamsulosin [Flomax] 0.4 mg capsule 0.4 mg PO QPM Qty: 90 RF: 1 Referrals: Antonio Chandra DO [Primary Care Provider] -
[2020-12-20 07:54] VITALS: BP 165/88; PULSE 85; RESP 16; O2SAT 97
== END 2020-12-20 07:55 | disposition home or self-care (01) ==
PROVIDERS: Emergency Provider Emergency Medicine; PCP Family Medicine
DX: K92.1 Melena (principal)
CPT/HCPCS: 36415; 80053; 83690; 85025; 85610; 85730; 99281; 99283